=== PATIENT | female | born 1935 | race Caucasian/White ===

== ENCOUNTER → 2016-04-04 07:59 | Outpatient (CLI) | payer MEDICARE, OTHER ==
[2014-08-11 06:26] VITALS: BMI 27.5
[~2016-04-04 07:59] MED LIST: HYDROCODONE-APA1 TAB PO; NORVASC5 MG PO; PLAVIX75 MG PO; POTASSIUM99 M1 PO; PRAVACHOL40 MG PO; PRILOSEC20 MG PO; XANAX0.25 MG PO
== END | disposition home or self-care (01) ==
LOC: D.CT 07:59
DX: K44.9 Diaphragmatic hernia without obstruction or gangrene (principal)

== ENCOUNTER → 2016-09-14 14:30 | Outpatient (CLI) | payer MEDICARE, OTHER ==
[2014-08-11 06:26] VITALS: BMI 27.5
== END | disposition home or self-care (01) ==
LOC: D.CT 14:30
DX: R10.12 Left upper quadrant pain (principal); R10.32 Left lower quadrant pain

== ENCOUNTER 2016-09-19 05:30 | Inpatient (IN) | payer MEDICARE, OTHER ==
[2016-09-18 11:14] LABS: HEMATOCRIT 34.9 % (36.0-48.0); HEMOGLOBIN 11.4 g/dL (12-16); MCH 31.3 pg (26.0-34.0); MCHC 32.7 g/dL (31.0-37.0); MCV 95.9 fL (80.0-100.0); MEAN PLATELET VOLUME 10.9 fL (7.4-10.4); RBC 3.64 10x6/uL (4.00-5.40)
[2016-09-18 11:23] LABS: CALC OSMOLALITY 272 mosm/kg (275-300); CALCIUM 8.7 mg/dL (8.5-10.1); CARBON DIOXIDE 22.1 mmol/L (21.0-32.0); CHLORIDE - SERUM 101 mmol/L (98-107); CREATININE - SERUM 0.5 mg/dL (0.6-1.3); GLUCOSE 89 mg/dL (74-106); POTASSIUM - SERUM 4.2 mmol/L (3.5-5.1); SODIUM 136 mmol/L (136-145); UREA NITROGEN 17 mg/dL (7-18); eGFR NON AFRICAN AMERICAN > 90 mL/min (90-120)
[2016-09-19] VITALS (10 sets, daily range): BP systolic 114–154; BP diastolic 64–84; BMI 26.6
[~2016-09-19] VITALS: Ht 165.1 cm; Wt 72.6 kg
--- NOTE | ~2016-09-19 | CN ---
PATIENT NAME:ELVIA ALONSO MEDICAL RECORD: [id number] : 34 LOCATION:[facility] ADMIT DATE: ACCOUNT: [id number] CONSULTING PHYSICIAN: DANILO JOSUE MD REFERRING PHYSICIAN: LADY HILL MD DATE OF CONSULTATION: 09/19/2016 CONSULT REQUESTING PHYSICIAN: Dr. Hill. REASON FOR CONSULTATION: Acute hypoxic hypercapnic respiratory failure. HISTORY OF PRESENT ILLNESS: Ms. Alonso is an 81-year-old female who underwent paraesophageal hernia repair. During her perioperative period, the patient was given some IV fluid and now the patient became in severe respiratory distress. She was put on BiPAP and 100% oxygen. The patient denies any fever and chills, no night sweats. She is very sleepy and lethargic. The patient denies any history of pulmonary disease. REVIEW OF SYSTEMS: Mainly in the history of present illness. PAST MEDICAL HISTORY: 1. Rheumatoid arthritis. 2. Mild pulmonary hypertension with a PA pressure of 42. 3. Chronic diastolic congestive heart failure with EF of 50%. 4. Hyperlipidemia. 5. Hypertension. 6. History of aortic stenosis. 7. Gastroesophageal reflux disease with a huge hiatal hernia and a history of transient ischemic attack. 8. History of iron deficiency anemia. PAST SURGICAL HISTORY: Now, she is status post paraesophageal hernia repair. PERSONAL AND SOCIAL HISTORY: The patient never smoked. She is a nondrinker. FAMILY HISTORY: Noncontributory. PHYSICAL EXAMINATION: GENERAL: Now, the patient is now lying comfortably in bed. She is in mild respiratory distress. VITAL SIGNS: The blood pressure is 142/84, pulse is 79, respirations 20 and the SpO2 is 99% on the BiPAP. HEENT: Conjunctivae are pink. Sclerae nonicteric. NECK: Supple. There is elevated JVD. CHEST: There are bilateral crackles. No wheezing. HEART: Rhythm regular, normal sound, no murmur. ABDOMEN: Soft. Bowel sounds present. No hepatosplenomegaly. RECTAL: Deferred. EXTREMITIES: No cyanosis, no clubbing, no pedal edema. SKIN: Warm, normal turgor. CENTRAL NERVOUS SYSTEM: The patient is awake, but she is sleepy and lethargic. LABORATORY DATA: ABG: The pH is 7.27, pCO2 is 50.8, pO2 is 69, bicarbonate is 23.6. This was done on 4 liters nasal cannula. CBC: The WBC is 3, hemoglobin is 11.4, hematocrit 34.9 and the platelet count is 236. Chemistry: Sodium 136, CONSULT REPORT [id number] ELVIA ALONSO potassium 4.2, BUN is 17, creatinine 0.5. IMPRESSION: 1. Acute hypoxic hypercapnic respiratory failure. 2. Respiratory acidosis secondary to acute hypoxic hypercapnic respiratory failure. 3. Pulmonary edema secondary to fluid overload and chronic diastolic dysfunction. 4. Mild pulmonary hypertension, PA pressure of 42. 5. Status post huge paraesophageal hernia repair. 6. History of rheumatoid arthritis. RECOMMENDATION: 1. Lasix 40 mg b.i.d. 2. Albuterol/ipratropium nebulizer. 3. DVT prophylaxis. 4. We will be careful with the narcotic medication. 5. I will check the proBNP, will check ammonia level, follow up labs and chest radiograph. Dr. Hill, thank you for involving me in the care of Mr. Alonso. The critical care time was 45 minutes. TRANSINT:[id number] Voice Confirmation ID: [id number] DOCUMENT ID: [id number] DANILO JOSUE MD CC: LADY HILL MD [id number] DICTATION DATE: 09/19/16 1459 MANUAL LATHE MACHINIST: 09/20/16 0100 [facility] [address] [place] [address]
[~2016-09-19 05:30] MED LIST changes: +CELEXA40 MG PO; +FOLIC ACID1 MG PO; +FUROSEMIDE40 MG PO; +METHOTREXATE2.5 MG PO; +OMEPRAZOLE20 M1 PO; +TYLENOL PM1 TAB PO; +VITAMIN D31000 UNIT PO
--- NOTE | 2016-09-19 12:19 | NUR ---
DR MONSALVE NOTIFIED ABOUT THE PATIENTS SEDATION LEVEL AND ORDERED ABG IN RR
--- NOTE | 2016-09-19 12:21 | NUR ---
RESPIRATORY HERE DOING ABG
--- NOTE | 2016-09-19 12:33 | NUR ---
RESPIRATORY HAVING DIFFICULTY GETTING ABG
--- NOTE | 2016-09-19 12:46 | NUR ---
ABG RESULTS TO DR MONSALVE. DR MONSALVE ORDERED SODIUM BICARB AND BIPAP FOR RESIRATORY TO [facility] ON THE FLOOR.
--- NOTE | 2016-09-19 13:25 | NUR ---
PATIENT RECEIVED TO FLOOR FROM PACU VIA BED. BIPAP IN PLACE. VITAL SIGNS STABLE. PATIENT RESTING WITH EYES CLOSED. RESPIRATIONS EVEN AND UNLABORED. WAKES EASY. 7 LAP SITES NOTED TO ABD. SCD ON BILATERALLY. FAMILY AT BEDSIDE. SIDE RAILS UP X3. BED IN LOW POSITION. CALL LIGHT IN REACH.
--- NOTE | 2016-09-19 15:20 | NUR ---
PATIENT ALERT IN BED VISITING WITH FAMILY. VITAL SIGNS REMAIN STABLE. NASAL CANNULA IN PLACE. INCENTIVE SPIROMETER AND TEACHING ON USE PROVIDED. STATES UNDERSTANDING. DENIES NEEDS. CALL LIGHT AND ENTERPRISE APPLICATION DEVELOPER BUTTON IN REACH. SIDE RAILS UP X3. BED IN LOW POSITION.
--- NOTE | 2016-09-19 17:00 | NUR ---
PATIENT ASSISTED UP TO RESTROOM THEN BACK TO BED. POSITIONED SELF FOR COMFORT. SCDS ON BILATERALLY. SIDE RAILS UP X3. BED IN LOW POSITION. CALL LIGHT IN REACH. BED ALARM ON.
--- NOTE | 2016-09-19 19:20 | NUR ---
PATIENT RESTING IN BED WITH GUESTS AT BEDSIDE AND DENIES NEEDS AT THIS TIME. BED IN LOWEST POSITION AND CALL LIGHT WITHIN REACH. ENCOUARGED THE PATIENT TO CALL IF SHE HAS NEEDS.
[2016-09-20] VITALS: BP 123/76
[2016-09-20 04:00] VITALS: BP 109/44
[2016-09-20 05:58] LABS: BASOPHILS 0 % (0-2); EOSINOPHILS 0 % (0-7); HEMATOCRIT 30.8 % (36.0-48.0); IMMATURE GRANULOCYTES 0.1 % (0-5); LYMPHOCYTES 4.6 % (15-50); MCH 31.1 pg (26.0-34.0); MCHC 32.5 g/dL (31.0-37.0); MCV 95.7 fL (80.0-100.0); MEAN PLATELET VOLUME 11.3 fL (7.4-10.4); NEUTROPHILS 84.3 % (40-80); PLATELET COUNT 248 10x3/uL (130-400); RBC 3.22 10x6/uL (4.00-5.40)
[2016-09-20 06:21] LABS: WBC 8.1 10x3/uL (4.8-10.8)
[2016-09-20 06:28] LABS: CALC OSMOLALITY 276 mosm/kg (275-300); CARBON DIOXIDE 25.6 mmol/L (21.0-32.0); CHLORIDE - SERUM 100 mmol/L (98-107); GLUCOSE 128 mg/dL (74-106); POTASSIUM - SERUM 3.8 mmol/L (3.5-5.1); SODIUM 137 mmol/L (136-145); UREA NITROGEN 15 mg/dL (7-18); eGFR NON AFRICAN AMERICAN 85 mL/min (90-120)
[2016-09-20 06:30] LABS: CREATININE - SERUM 0.7 mg/dL (0.6-1.3)
--- NOTE | 2016-09-20 07:37 | OP ---
PATIENT NAME: ELVIA ALONSO MEDICAL RECORD: [id number] :34 LOCATION:[facility] ADMISSION DATE: SURGEON: LADY HILL MD OPERATION DATE: 09/19/16 DATE OF OPERATION: 09/19/2016 DATE OF PROCEDURE: 09/19/2016. PREOPERATIVE DIAGNOSIS: Grade IV paraesophageal hernia. POSTOPERATIVE DIAGNOSIS: Grade IV paraesophageal hernia. PROCEDURE PERFORMED: Laparoscopic paraesophageal hernia repair with Talat fundoplication. SURGEON: Lady Hill M.D. HEAD OF ACADEMIC TECHNOLOGY: Floyd Munoz M.D. OPERATIVE COURSE: For full details of the operative note please see Dr. Hill's operative note. I was asked to assist Dr. Hill due to the complexity of the operation. This is an elderly female who had a large grade IV paraesophageal hernia. Her entire stomach was herniated into the mediastinum as well as the splenic vessels. I assisted Dr. Hill in the reduction of the hernia, the laparoscopic excision of the hernia sac, the laparoscopic dissection of the mediastinum, the hiatal hernia repair, and Talat fundoplication. TRANSINT:[id number] Voice Confirmation ID: [id number] DOCUMENT ID: [id number] LADY HILL MD at 1546 at 0737 CC: [id number] DICTATION DATE: 09/19/16 1253 POLL CLERK: 09/19/16 2212 [facility] [address] [place] [address]
--- NOTE | 2016-09-20 07:40 | NUR ---
PATIENT RECEIVED ALERT IN BED. NO SIGNS OF DISTRESS NOTED. FAMILY PRESENT. DENIES NEEDS. SIDE RAILS UP X3. BED IN LOW POSITION. CALL LIGHT AND FOREIGN CLERK BUTTON IN REACH.
--- NOTE | 2016-09-20 08:12 | NUR ---
PATIENT ALERT IN HIGH CHI POSITION. NO SIGNS OF DISTRESS NOTED. FAMILY AT BEDSIDE. SCHEDULED MEDICATION ADMINISTERED. DENIES NEEDS. BED ALARM ON. SIDE RAILS UP X3. BED IN LOW POSITION. CALL LIGHT IN REACH.
[2016-09-20 09:15] VITALS: BP 128/65
--- NOTE | 2016-09-20 12:00 | NUR ---
PATIENT ALERT IN BED WATCHING TV. NO SIGNS OF DISTRESS NOTED. FAMILY AT BEDSIDE. SIDE RAILS UP X2. BED IN LOW POSITION. CALL LIGHT IN REACH. DENIES NEEDS.
[2016-09-20 12:57] VITALS: BP 143/65
[2016-09-20 13:25] VITALS: Ht 165.1 cm; Wt 72.6 kg
[2016-09-20 15:45] VITALS: BP 148/68
--- NOTE | 2016-09-20 17:00 | NUR ---
SITTING UP IN CHAIR ALERT. NO SIGNS OF DISTRESS NOTED. CALL LIGHT IN REACH. FAMILY PRESENT.
--- NOTE | 2016-09-20 19:45 | NUR ---
PATIENT RESTING IN BED WITH GUEST AT BEDSIDE. PATIENT REQUESTED THAT I CALL THE DOCTOR FOR SOMETHING TO HELP HER SLEEP. PATIENT DENIES OTHER NEEDS AT THIS TIME. BED IN LOWEST POSITION, CALL LIGHT WITHIN REACH, AND BED ALARM ON. ENCOURAGED THE PATIENT TO CALL IF SHE HAS FURTHER NEEDS.
[2016-09-20 20:00] VITALS: BP 145/63
[2016-09-21] VITALS: BP 120/60
[2016-09-21 04:00] VITALS: BP 141/72
[2016-09-21 04:24] LABS: BASOPHILS 0.1 % (0-2); EOSINOPHILS 0.1 % (0-7); HEMATOCRIT 30.3 % (36.0-48.0); HEMOGLOBIN 9.8 g/dL (12-16); IMMATURE GRANULOCYTES 0.3 % (0-5); MCHC 32.3 g/dL (31.0-37.0); MCV 95.9 fL (80.0-100.0); MEAN PLATELET VOLUME 11.1 fL (7.4-10.4); NEUTROPHILS 85.5 % (40-80); PLATELET COUNT 216 10x3/uL (130-400); RBC 3.16 10x6/uL (4.00-5.40); RDW 16.3 % (11.5-14.5); WBC 6.8 10x3/uL (4.8-10.8)
[2016-09-21 04:47] LABS: CALCIUM 8.4 mg/dL (8.5-10.1); CARBON DIOXIDE 27.6 mmol/L (21.0-32.0); CHLORIDE - SERUM 102 mmol/L (98-107); GLUCOSE 118 mg/dL (74-106); POTASSIUM - SERUM 3.7 mmol/L (3.5-5.1); SODIUM 139 mmol/L (136-145)
[2016-09-21 04:48] LABS: CALC OSMOLALITY 276 mosm/kg (275-300); CREATININE - SERUM 0.4 mg/dL (0.6-1.3); UREA NITROGEN 8 mg/dL (7-18); eGFR NON AFRICAN AMERICAN > 90 mL/min (90-120)
--- NOTE | 2016-09-21 07:15 | NUR ---
REPORT RECIEVED ASSUMED CARE. PATIENT IN CHAIR WITH NO COMPLAINTS IV INTACT. O2 ON. CALL LIGHT WITHIN REACH.
[2016-09-21 08:32] VITALS: BP 179/72
[2016-09-21 12:38] VITALS: BP 177/87
[2016-09-21 16:12] VITALS: BP 153/69
--- NOTE | 2016-09-21 18:55 | NUR ---
PATIENT IN BED WITH NO COMPLAINTS. IV INTACT. BED ALARM ON. CALL LIGHT WITHIN REACH.
[2016-09-21 20:00] VITALS: BP 162/60
[2016-09-22] VITALS: BP 90/54
[2016-09-22 04:00] VITALS: BP 122/79
[2016-09-22 06:43] LABS: BASOPHILS 0.2 % (0-2); EOSINOPHILS 4.2 % (0-7); HEMATOCRIT 30.4 % (36.0-48.0); HEMOGLOBIN 9.9 g/dL (12-16); IMMATURE GRANULOCYTES 0.2 % (0-5); LYMPHOCYTES 10.6 % (15-50); MCH 31.3 pg (26.0-34.0); MCHC 32.6 g/dL (31.0-37.0); MCV 96.2 fL (80.0-100.0); MONOCYTES 13.3 % (2-11); NEUTROPHILS 71.5 % (40-80); PLATELET COUNT 226 10x3/uL (130-400); RBC 3.16 10x6/uL (4.00-5.40); RDW 15.9 % (11.5-14.5); WBC 4.8 10x3/uL (4.8-10.8)
--- NOTE | 2016-09-22 07:00 | NUR ---
REPORT RECIEVED ASSUMED CARE. PATIENT IN BED WITH IV INTACT. NO COMLAINTS, CALL LIGHT WITHIN REACH.
[2016-09-22 07:06] LABS: CALC OSMOLALITY 275 mosm/kg (275-300); CALCIUM 8.3 mg/dL (8.5-10.1); CARBON DIOXIDE 31.9 mmol/L (21.0-32.0); CHLORIDE - SERUM 103 mmol/L (98-107); CREATININE - SERUM 0.4 mg/dL (0.6-1.3); GLUCOSE 97 mg/dL (74-106); SODIUM 139 mmol/L (136-145); UREA NITROGEN 7 mg/dL (7-18); eGFR NON AFRICAN AMERICAN > 90 mL/min (90-120)
[2016-09-22 07:08] LABS: POTASSIUM - SERUM 2.9 mmol/L (3.5-5.1)
[2016-09-22 07:48] VITALS: BP 163/74
[2016-09-22 11:47] VITALS: BP 162/86
[2016-09-22 16:22] VITALS: BP 157/77
--- NOTE | 2016-09-22 18:55 | NUR ---
PATIENT UP TO BR. IV OUT. CATH TIP INTACT. NOTIFIED MARCELO NORTON TUFTER OPERATOR NURSE. STATED SHE WOULD RESTART FOR PATIENT. PATIENT ASSISTED BACK TO BED BY STANLEY NORTON. NO COMPLAINTS OR PROBLEMS. CALL LIGHT WITHIN REACH.
[2016-09-22 19:00] VITALS: BP 177/87
[2016-09-23 04:00] VITALS: BP 163/75
[2016-09-23 06:04] LABS: BASOPHILS 0.5 % (0-2); EOSINOPHILS 5.1 % (0-7); HEMATOCRIT 30.3 % (36.0-48.0); HEMOGLOBIN 9.9 g/dL (12-16); IMMATURE GRANULOCYTES 0.5 % (0-5); LYMPHOCYTES 12.7 % (15-50); MCHC 32.7 g/dL (31.0-37.0); MEAN PLATELET VOLUME 10.7 fL (7.4-10.4); MONOCYTES 12.2 % (2-11); PLATELET COUNT 233 10x3/uL (130-400); RBC 3.19 10x6/uL (4.00-5.40); RDW 15.7 % (11.5-14.5); WBC 3.9 10x3/uL (4.8-10.8)
[2016-09-23 06:54] LABS: CALC OSMOLALITY 275 mosm/kg (275-300); CALCIUM 8.1 mg/dL (8.5-10.1); CARBON DIOXIDE 30.7 mmol/L (21.0-32.0); CHLORIDE - SERUM 103 mmol/L (98-107); CREATININE - SERUM 0.5 mg/dL (0.6-1.3); GLUCOSE 100 mg/dL (74-106); POTASSIUM - SERUM 3.3 mmol/L (3.5-5.1); SODIUM 139 mmol/L (136-145); UREA NITROGEN 8 mg/dL (7-18); eGFR NON AFRICAN AMERICAN > 90 mL/min (90-120)
--- NOTE | 2016-09-23 08:00 | NUR ---
PATIENT SITTING UP IN BED WITH NO COMPLAINTS AT THIS TIME. IV INTACT. INCISIONS X 7 WITH BANDAIDS INTACT. NO PROBLEMS AT THIS TIME. O2 ON AT 3 LNC. BED ALARM ON. CALL LIGHT WITHIN REACH.
--- NOTE | 2016-09-23 18:45 | NUR ---
PATIENT SITTING UP IN CHAIR WITH FAMILY AT BEDSIDE. IV INTACT. WRAPPED WITH ALLY WRAP AT THIS TIME. NO COMPLAINTS OR SIGNS OF DISTRESS. CALL LIGHT WITHIN REACH. CHAIR ALARM ON.
[2016-09-23 19:00] VITALS: BP 145/91
--- NOTE | 2016-09-23 22:40 | NUR ---
REC'D SITTING IN CHAIR. ALERT AND ORIENTED X4. DENIED PAIN AT THIS TIME. WANTING TO GO TO THE RESTROOM, TOOK HER. HELPED HER INTO BED. DENIED FURTHER NEEDS AT THIS TIME. INSTRUCTED TO CALL IF NEEDED ANYTHING/ VERBLAIZED UNDERSTANING. WILL CONT TO MONITOR. BED LOW, LOCKED, CALL LIGHT IN REACH, ALARM ON.
[2016-09-24] VITALS: BP 130/61
--- NOTE | 2016-09-24 01:24 | NUR ---
PT RESTING WITH EYES CLOSED. RESP EVEN AND REGULAR. SR UP X2,CALL LIGHT WITHIN TRISH.
[2016-09-24 04:00] VITALS: BP 154/66
--- NOTE | 2016-09-24 05:08 | NUR ---
RESTING WELL, NO DISTRESS NOTED, WILL CONT TO MONITOR. BED LOW, LOCKED, CALL LIGHT IN REACH, ALARM ON.
[2016-09-24 07:31] LABS: BASOPHILS 0.5 % (0-2); EOSINOPHILS 5.2 % (0-7); HEMATOCRIT 34.3 % (36.0-48.0); HEMOGLOBIN 11.2 g/dL (12-16); IMMATURE GRANULOCYTES 1.5 % (0-5); LYMPHOCYTES 9.2 % (15-50); MCH 30.5 pg (26.0-34.0); MCHC 32.7 g/dL (31.0-37.0); MCV 93.5 fL (80.0-100.0); MEAN PLATELET VOLUME 11.6 fL (7.4-10.4); MONOCYTES 12.4 % (2-11); NEUTROPHILS 71.2 % (40-80); PLATELET COUNT 251 10x3/uL (130-400); RBC 3.67 10x6/uL (4.00-5.40); RDW 15.6 % (11.5-14.5)
[2016-09-24 07:35] LABS: CALC OSMOLALITY 277 mosm/kg (275-300); CALCIUM 8.6 mg/dL (8.5-10.1); CARBON DIOXIDE 29.6 mmol/L (21.0-32.0); CHLORIDE - SERUM 100 mmol/L (98-107); CREATININE - SERUM 0.5 mg/dL (0.6-1.3); GLUCOSE 116 mg/dL (74-106); POTASSIUM - SERUM 3.7 mmol/L (3.5-5.1); SODIUM 140 mmol/L (136-145); UREA NITROGEN 7 mg/dL (7-18); eGFR NON AFRICAN AMERICAN > 90 mL/min (90-120)
--- NOTE | 2016-09-24 10:34 | NUR ---
Patient Name: ELVIA ALONSO Admission Status: Elective Accout number: [id number] Admission Date: 09-20-2016 : 1935 Admission Diagnosis:ACUTE RESPIRATORY FAILURE WITH HYPERCAPNIA Attending: GLADYS Current LOS: 4 Anticipated DC Date: 09-24-2016 Planned Disposition: Inpatient Rehab Primary Insurance: MEDICARE A & B Discharge Planning Comments: CM MET WITH PATIENT REGARDING D/C NEEDS AND PLANS. PATIENT STATED SHE LIVES WITH HER SPOUSE (ANGEL) AND SON. PATIENT STATED THEY COULD DRIVE HER HOME AT DISCHARGE. PATIENT STATED SHE HAS ONE STEP TO ENTER HOME AND NO STAIRS INSIDE. PATIENT STATED SHE IS PRETTY INDEPENDENT AT HOME AND HAS A CANE. PATIENT STATED HER SON AND SPOUSE HELP HER IF NEEDED. PATIENTS PCP IS DR. BLANDON AND PHARMACY IS [facility]. PATIENT HAS CONSULT TO IP REHAB AND SHOULD D/C THERE TODAY. CM WILL CONTINUE TO FOLLOW PATIENT WITH D/C NEEDS AND PLANS. PCP DR. BARBER BALDWIN [facility] [phone] ANGEL (SPOUSE) [phone] Powerbuilder: Huong Shah Is the patient Alert and Oriented? Yes 0 * How many steps to enter\exit or inside your home? 1 0 * PCP DR. BLANDON 0 * Pharmacy [facility] 0 * Preadmission Environment Home with Family 0 * ADLs Independent 0 * Equipment None 0 * List name and contact numbers for known caregivers / representatives who currently or will assist patient after discharge: ANGEL (SPOUSE) [phone] * Community resources currently utilized None 0 * Additional services required to return to the preadmission environment? Yes 0 * Can the patient safely return to the preadmission environment? Yes 0 * Has this patient been hospitalized within the prior 30 days at any hospital? No 0 Grand Total: 0
[2016-09-24] MEDS ORDERED: LASIX40 MG PO (11:55)
[2016-09-24] MEDS ORDERED: BENADRYL25 MG PO (11:56)
[2016-09-24] MEDS ORDERED: IPRAT-ALBUT 0.5-3 ML UPD (11:57)
[2016-09-24] MEDS ORDERED: LOVENOX30 MG/0.3 SC (11:58)
[2016-09-24] MEDS ORDERED: HYDROCODON-ACE1 EAC7 PO (11:59)
[2016-09-24] MEDS ORDERED: ELECTROLYTE MISC (12:07)
[2016-09-24] MEDS ORDERED: ONDANSETRON4 MG/2 M3 IV (12:07)
[2016-09-24 12:24] VITALS: BP 169/92
--- NOTE | 2016-09-24 15:16 | NUR ---
CM REASSESSMENT NOTE: PATIENT IS DISCHARGING TODAY TO IP REHAB
--- NOTE | 2016-09-24 15:46 | OP ---
PATIENT NAME: ELVIA ALONSO MEDICAL RECORD: [id number] :34 LOCATION:[facility] ADMISSION DATE:09/20/16 SURGEON: LADY HILL MD DATE OF OPERATION: 09/19/2016 PREOPERATIVE DIAGNOSES: 1. Type 4 paraesophageal hernia. 2. Large hiatal hernia. POSTOPERATIVE DIAGNOSES: 1. Type 4 paraesophageal hernia. 2. Large hiatal hernia. PROCEDURES: 1. Laparoscopic incarcerated type 4 paraesophageal hernia repair. 2. Laparoscopic posterior crural repair with Talat fundoplication. SURGEON: Lady Hill MD LOGISTICS PLANNING MANAGER: FLOYD MUNOZ MD COMPLICATIONS: None. BLOOD LOSS: Minimal. OPERATIVE COURSE: The patient was conveyed to the operating room electively on 09/19/2016. General anesthesia was induced by anesthesia staff. The abdomen was sterilely prepped and draped. In left upper quadrant, a small skin mary was accomplished. A Veress needle was inserted through the skin mary into the peritoneal cavity. CO2 insufflation was begun. Once a sufficient pneumoperitoneum had been achieved, a 12-mm trocar was inserted at the umbilicus. A 11-mm trocar was inserted at the umbilicus. A 12-mm trocars were inserted in the right upper quadrant. Two 5-mm trocars were inserted in the left upper quadrant. A Jaret retractor was inserted through an incision in the epigastrium. The Jaret retractor was used to elevate the left lateral segment of the liver. I began my dissection around the greater curve of the stomach. Almost all the stomach was up in the chest and a portion of the spleen as well as the splenic artery. These were delivered down into the abdominal cavity. I continued my dissection. The phrenicoesophageal ligament was taken down. I began my dissection along the lesser curve of the stomach. The mediastinal dissection was performed. We delivered the stomach as well as the spleen and splenic artery into the abdominal cavity. There was about 4 cm of esophagus as well. I cleaned the both crura posteriorly. The crural repair was a posterior repair. It was accomplished with Stratafix 0 Prolene. I then reached and grabbed the fundus of the stomach and brought it around posteriorly. I sutured the stomach to esophagus to stomach with Stratafix suture, which was a PDS. A five throws of the PDS suture were accomplished, 2 as a locking stitch cephalad and then 2 as a locking stitch caudad. The repair was a nice floppy repair. There was a tension-free esophagus with about 4 cm of esophagus down to the abdominal cavity. The Jaret retractor was removed after I examined the abdomen. There is no evidence of any bleeding. The 12-mm trocar and the 11-mm trocar OPERATIVE REPORT [id number] ELVIA ALONSO sites were closed with Bhavik-Milan suture closure device and 0 Vicryl sutures. Skin incisions were closed with interrupted 4-0 Vicryls. Sterile dressings were applied. The patient was then extubated and conveyed to post-anesthesia care unit where she was in stable condition. TRANSINT:[id number] Voice Confirmation ID: [id number] DOCUMENT ID: [id number] LADY HILL MD at 1546 CC: JOSSE BLANDON DO, SATISH TEJADA MD and SANJEEV PETERSEN [id number] DICTATION DATE: 09/19/16 1148 JINRIKSHA DRIVER: 09/19/16 1342 ADM IN [facility] [address] [place] [address]
--- NOTE | 2016-09-24 16:10 | NUR ---
Rehab Prescreening Consult recieved and the patient was visited. She meets criteria and will be accepted today if the physician agrees. The program and criteria was discussed with the patient and her son. Both agree on admission today. Pia Avila RN Clinical Liaison, Rehab
--- NOTE | 2016-09-24 17:58 | NUR ---
DISHCARGE INSTRUCTIONS GIVEN QUESTIONS ANSWERED, IV STAYING IN, DISCHARGED TO REHAB ROOM 1112B IN WC WITH BELONGINGS
[2016-09-24] MEDS ORDERED: AMPICILLIN1.5 G/VIA2 IV (20:23)
== END 2016-09-24 18:36 | DRG 163 ==
LOC: D.MS 05:30 → D.OPS 05:30 → D.PAN 08:00 → D.MS 13:25 → D.OPS 09-20 17:24 → D.MS 09-20 17:24
PROVIDERS: Anesthesiology; Internal Medicine Pulmonary Disease; ADMIT Surgery
PROC: 0BQS4ZZ (ICD-10-PCS; 2016-09-19)
PROC: 0BQR4ZZ (ICD-10-PCS; 2016-09-19)
PROC: 5A09357 Assistance with Respiratory Ventilation, Less than 24 Consecutive Hours, Continuous Positive Airway Pressure (ICD-10-PCS; principal; 2016-09-19 08:00)
PROC: 0DV44ZZ Restriction of Esophagogastric Junction, Percutaneous Endoscopic Approach (ICD-10-PCS; principal; 2016-09-19 08:00)
DX: J96.01 Acute respiratory failure with hypoxia (principal); J69.0 Pneumonitis due to inhalation of food and vomit; I50.33 Acute on chronic diastolic (congestive) heart failure; E87.2 Acidosis; I11.0 Hypertensive heart disease with heart failure; K21.9 Gastro-esophageal reflux disease without esophagitis; I27.2 Other secondary pulmonary hypertension; M06.9 Rheumatoid arthritis, unspecified; K44.9 Diaphragmatic hernia without obstruction or gangrene

== ENCOUNTER 2016-09-24 17:45 | Inpatient (IN) | payer MEDICARE, OTHER ==
[~2016-09-24] VITALS: Ht 165.1 cm; Wt 72.6 kg
[~2016-09-24 17:45] MED LIST changes: +BENADRYL25 MG PO; +ELECTROLYTE MISC; +HYDROCODON-ACE1 EAC7 PO; +IPRAT-ALBUT 0.5-3 ML UPD; +LASIX40 MG PO; +LOVENOX30 MG/0.3 SC; +ONDANSETRON4 MG/2 M3 IV
--- NOTE | 2016-09-24 19:40 | NUR ---
REVIEWED ADMISSION DOCUMENTS WITH PATIENT, PT SIGNED. PT STATES SHE IS READY TO GO HOME AND ONLY WANTS TO BE HERE FOR A COUPLE OF DAYS.
[2016-09-24] MEDS ORDERED: AMPICILLIN1.5 G/VIA2 IV (20:23)
--- NOTE | 2016-09-24 22:00 | NUR ---
INITIATED ADMISSION ASSESSMENT AND HISTORY. PT AWAKE ALERT APPEARS TO BE ALERT AND ORIENTED X 4, AND AWARE OF HER SURROUNDINGS.
[2016-09-24 22:40] VITALS: BP 145/73; BMI 26.6
--- NOTE | 2016-09-25 01:00 | NUR ---
PT RESTING WITH EYES CLOSED, RESPIRATIONS REGULAR AND UNLABORED. NO S/S OF ACUTE DISTRESS.
--- NOTE | 2016-09-25 04:41 | NUR ---
PT RESTING QUIETLY, RESPIRATIONS REGULAR AND UNLABORED.
[2016-09-25 05:36] LABS: BASOPHILS 0.6 % (0-2); EOSINOPHILS 5.2 % (0-7); HEMATOCRIT 31.4 % (36.0-48.0); HEMOGLOBIN 10.1 g/dL (12-16); IMMATURE GRANULOCYTES 0.3 % (0-5); LYMPHOCYTES 12.3 % (15-50); MCH 30.3 pg (26.0-34.0); MCHC 32.2 g/dL (31.0-37.0); MCV 94.3 fL (80.0-100.0); MEAN PLATELET VOLUME 10.9 fL (7.4-10.4); MONOCYTES 18.4 % (2-11); NEUTROPHILS 63.2 % (40-80); PLATELET COUNT 280 10x3/uL (130-400); RBC 3.33 10x6/uL (4.00-5.40); RDW 15.5 % (11.5-14.5); WBC 3.3 10x3/uL (4.8-10.8)
[2016-09-25 06:07] LABS: CALC OSMOLALITY 281 mosm/kg (275-300); CALCIUM 8.5 mg/dL (8.5-10.1); CARBON DIOXIDE 31.3 mmol/L (21.0-32.0); CHLORIDE - SERUM 103 mmol/L (98-107); CREATININE - SERUM 0.6 mg/dL (0.6-1.3); GLUCOSE 102 mg/dL (74-106); POTASSIUM - SERUM 3.2 mmol/L (3.5-5.1); SODIUM 142 mmol/L (136-145); eGFR NON AFRICAN AMERICAN > 90 mL/min (90-120)
[2016-09-25 06:08] LABS: UREA NITROGEN 11 mg/dL (7-18)
[2016-09-25 14:26] VITALS: Ht 165.1 cm; Wt 72.6 kg
[2016-09-25 15:34] VITALS: BP 135/64
--- NOTE | 2016-09-25 16:09 | NUR ---
RESTING IN BED. HAS TWO VISITORS SITTING AND TALKING WITH HER. SHE DENIES NEEDS OR PAIN. ABD INCISIONS X5 ARE SMALL AND COVERED WITH STERI STRIPS. SHE DENIES NEW OR WORSE PAIN. DOES STATES SOME OCCAS. DISCOMFORT TO LEFT SIDE THAT SHE HAS HAD FOR A "LONG TIME".
--- NOTE | 2016-09-25 18:47 | NUR ---
RESTING QUIETLY IN BED. DENIES NEEDS OR C/O. CALL LIGHT IN REACH
--- NOTE | 2016-09-25 19:06 | RHP ---
PATIENT: ELVIA ALONSO MEDICAL RECORD: [id number] ACCOUNT: [id number] LOCATION:[facility]1112 : 34 ADMISSION DATE: 09/24/16 REHABILITATION HISTORY AND PHYSICAL EXAMINATION POST ADMISSION PHYSICIAN EXAMINATION DATE OF ADMISSION: 09/24/2016. ADMITTING DIAGNOSES: 1. Respiratory disorder, non-ventilator dependent. 2. Shortness of breath. HISTORY OF PRESENT ILLNESS: An 81-year-old white female patient of Dr. Swan admitted to [facility] about a week ago for laparoscopic incarcerated type 4 paraesophageal hernia repair with a laparoscopic posterior crural repair with Talat fundoplication. The surgery was performed by Dr. Montes and Dr. Shell. During the perioperative period, she had been given IV fluids and developed some respiratory distress. She was put on BiPAP on 100% oxygen. She has been titrated down to 3-4 liters of O2, but desats to the 80s on room air. Most recent chest x-ray showed persistent bilateral lower lobe airspace disease with bilateral pleural effusions. Dr. Aguiar and Dr. Garcia, pulmonologists have been consulted. Her findings suggest pneumonia and/or congestive heart failure. She remained on O2 at 4 liters with IV antibiotics and IV Lasix. She previously lived with her spouse and was independent with ADLs and mobility. Currently, she has moderate to max assist for ADLs and mobility. She becomes dyspneic and tires easily with minimal exertion. She plans to get stronger and return back home with her and her son at prior level of functioning. Comorbidities include frequent falls, arrhythmias, loss of appetite, change in cognition, hypertension, acid reflux, peptic ulcer disease, constipation, depression, and anxiety. PAST MEDICAL HISTORY: Rheumatoid arthritis, pulmonary hypertension, congestive heart failure, hyperlipidemia, hypertension, aortic stenosis, GERD and iron deficiency anemia. PAST SURGICAL HISTORY: Paraesophageal hernia repair, cataracts, hysterectomy and bilateral carpal tunnel. ALLERGIES: No coded allergies. MEDICATIONS: Methotrexate 50 mg a week, potassium 595 mg a day, omeprazole 20 mg twice a day, pravastatin 40 mg a day, amlodipine 5 mg a day, Lasix 40 mg a day, Tylenol PM p.r.n., Celexa 40 mg a day, folic acid 1 mg a day, vitamin D3 1000 units daily. FAMILY HISTORY: Parents with cardiovascular disease and sibling with cancer, and child with cardiovascular disease. SOCIAL HISTORY: Nonsmoker, nondrinker. REVIEW OF SYSTEMS: GENERAL: Positive for fatigue, positive for weakness. PHOTOGRAPHIC RESTORER: Denies headache or dizziness. CARDIOVASCULAR: No chest pain. CONSTITUTIONAL: No fever or chills. HISTORY AND PHYSICAL [id number] ELVIA ALONSO GASTROINTESTINAL: No nausea, vomiting, diarrhea. Does complain of constipation. GENITOURINARY: No dysuria. HEME: Easy bruising. SKIN: Again, easy bruising. RESPIRATORY: Positive for shortness of breath. Positive for cough. MUSCULOSKELETAL: Positive for stiffness and arthritis. PHYSICAL EXAMINATION: GENERAL: No acute distress. HEENT: Normocephalic, atraumatic. NECK: Supple. LUNGS: Decreased breath sounds bilaterally with crackles heard in the bases. CARDIOVASCULAR: Regular rate and rhythm. III/ systolic ejection murmur. Trace pedal edema. ABDOMEN: Soft, nontender to palpation. Bowel sounds are present. EXTREMITIES: Trace edema. No clubbing or cyanosis. MUSCULOSKELETAL: Full range of motion in all extremities. NEUROLOGIC: Awake, alert, oriented times 3. LABORATORY DATA: See chart. ASSESSMENT: 1. An 81-year-old female patient admitted to rehab with a working diagnosis of respiratory distress. The patient has potential to make improvement. We instituted the following multidisciplinary therapies including, but not limited to physical, occupational, respiratory, speech, nutritional services, prosthetics and orthotics. Given her complex condition and risk for more complications, rehabilitation services cannot be provided at a lower level of care such as a intermediate facility. PLAN: 1. Admit to [facility] rehab for intensive inpatient therapy to include the following disciplines: A. Physical therapy to improve gait, all transfer skills and bed mobility to a modified independent level. B. Occupational therapy to improve activities of daily living to a modified independent level. C. Case management to assist with discharge planning and placement options. D. Nutrition to assist with nutritional needs. E. Rehabilitation nursing to assist with monitoring of the patient's underlying medical conditions and to assist with any type of bowel or bladder management. 2. The patient's current medications and medical care will be continued. 3. The patient's FIM scores are better as reported. 4. We will discuss this patient during the care team staff meeting. TRA notes whether there has been none or any medical functional changes since admission, no change since prescreen. TRA test, the patient continues to be appropriate for IRF, continues to be appropriate. TRANSINT:[id number] Voice Confirmation ID: [id number] DOCUMENT ID: [id number] HISTORY AND PHYSICAL [id number] ELVIA ALONSO notes whether there has been none or any medical/functional change since admission: - TRA attests patient continues to be appropriate for IRF: - DEREK TINEO MD at 1906 CC: [id number] DICTATION DATE: 09/24/161940 REQUIREMENTS MANAGER: 09/24/16 5687 ADM IN [facility] [address] [place] [id number]
--- NOTE | 2016-09-25 19:30 | NUR ---
PT RESTING IN BED, PT STATES SHE FEELS A LITTLE RESTLESS AND HOPES TO BE ABLE TO GET A GOOD NIGHT SLEEP TONIGHT.
[2016-09-25 20:14] VITALS: BP 126/77
--- NOTE | 2016-09-25 22:30 | NUR ---
SALINE LOCK DCD, CANULA INTACT, SALINE RESTARTED X1 22G IN RIGHT HAND. PT TOLERATED WELL.
--- NOTE | 2016-09-26 04:46 | NUR ---
PT RESTING QUIETLY, IV INFUSED. NO S/S OF ACUTE DISTRESS.
[2016-09-26 08:24] VITALS: BP 128/79
--- NOTE | 2016-09-26 08:35 | NUR ---
PT AM MEDS ADMINISTERED. PT DENEIS NEEDS AT THIS TIME. BED LOW. CLIN REACH.
--- NOTE | 2016-09-26 11:13 | NUR ---
PT IN THERAPY, TOLERATING WELL. PT DENIES NEEDS. WCTM.
--- NOTE | 2016-09-26 16:17 | NUR ---
PATIENT ADMITTED TO REHAB FROM ACUTE FLOOR. SHE HAS A CANE AT HOME AND LIVES WITH HER SPOUSE AND SON. DR. BLANDON IS HER PCP AND SHE USES [facility] FOR HER MEDCIATIONS.WILL CONTINUE TO FOLLOW WITH PATIENT
--- NOTE | 2016-09-26 16:19 | NUR ---
CARE TEAM MEETING: PATIENT PROGRESSING VERY WELL IN THERAPY. TENATIVE DISCHARGE DATE IS 09/28/16 HOME WITH HER SPOUSE. WILL CONTINUE TO FOLLOW WITH PATIENT. DME AT HOME IS A CANE.
--- NOTE | 2016-09-26 17:20 | NUR ---
PT REQ AND REC'D PRN PAIN MEDICATION AT THIS TIME PER ORDERS. WCTM.
--- NOTE | 2016-09-26 19:15 | NUR ---
SITTING UP IN GIA AT BEDSIDE. DENIES NEEDS.
--- NOTE | 2016-09-26 20:20 | NUR ---
REMAINS SEATED AT BEDSIDE. DENIES NEEDS.
[2016-09-26 22:20] VITALS: BP 163/69
--- NOTE | 2016-09-26 22:20 | NUR ---
ASSESSMENT AND HS MEDS COMPLETE. REQUESTED AND WAS GIVEN TEMAZEPAM 15MG PO FOR SLEEP. STARTED IV UNASYN 1.5GM IN 10ML OR RUN PER PUMP VIA RIGHT HAND S/L OVER 30 MINUTES.
--- NOTE | 2016-09-27 00:20 | NUR ---
RESTING QUIETLY ON LEFT SIDE. NO DISTRESS EVIDENT.
--- NOTE | 2016-09-27 02:29 | NUR ---
RESTING IN BED ON RIGHT SIDE. APPEARS COMFORTABLE.
--- NOTE | 2016-09-27 03:50 | NUR ---
STARTED UNASYN 1.5GM IN 100ML TO RUN PER PUMP VIA RIGHT HAND S/L OVER 30 MINUTES. PATIENT VERY DROWSY.
--- NOTE | 2016-09-27 06:00 | NUR ---
RESTING IN BED, EYES CLOSED.
--- NOTE | 2016-09-27 07:27 | NUR ---
PT SITTING ON THE SIDE OF HER BED EATING BREAKFAST. NO SWALLOWING PROBLEMS NOTED. ALERT AND ORIENTED X 3. DENIES ACUTE PAIN OR DISCOMFORT AT THIS TIME. NO COMPLAINTS VOICED. SR'S ARE UP X 2 IN BED. CALL LIGHT AND BEDSIDE TABLE ARE WITHIN EASY REACH.
--- NOTE | 2016-09-27 07:55 | NUR ---
AWAKE.CL IN REACH.DENIES NEEDS.
[2016-09-27 09:42] VITALS: BP 165/82
--- NOTE | 2016-09-27 10:38 | NUR ---
PT IS PARTICIPATING IN THERAPY AT THIS TIME.
--- NOTE | 2016-09-27 12:30 | NUR ---
PT IS FEEDING SELF LUNCH IN HER ROOM. NO NEEDS VOICED.
--- NOTE | 2016-09-27 14:36 | NUR ---
Nutrition Follow Up: Pt is eating 87% meal avg on a regular soft diet. No BM since admit. Meds noted including Lasix. Labs reviewed. Rec continue current diet. RD following.
--- NOTE | 2016-09-27 17:05 | NUR ---
PT RESTING IN HER ROOM EATING SUPPER. NO NEEDS VOICED.
--- NOTE | 2016-09-27 19:10 | NUR ---
UP IN W/C AT BEDSIDE. DENIES NEEDS.
[2016-09-27 21:00] VITALS: BP 154/67
--- NOTE | 2016-09-27 21:00 | NUR ---
ASSESSMENT COMPLETE. DENIES CURRENT NEEDS.
--- NOTE | 2016-09-27 22:10 | NUR ---
GAVE PATIENT RESTORIL 15MG PO FOR SLEEP. STARTED UNASYN 1.5GM IN 100 ML TO RUN OVER 30 MINUTES VIA RIGHT HAND S/L. PATIENT REFUSED SHOWER TONIGHT WELL IN THE AM. SAYS SHE WILL TAKE ONE AT HOME TOMORROW AFTER DISCHARGE.
--- NOTE | 2016-09-27 23:50 | NUR ---
RESTING QUIETLY IN BED, EYES CLOSED.
--- NOTE | 2016-09-28 01:50 | NUR ---
RESTING IN BED, ON LEFT SIDE, EYES CLOSED.
--- NOTE | 2016-09-28 04:30 | NUR ---
AWOKE PATIENT. FLUSHED HER RIGHT HAND S/L. STARTED UNASYN 1.5GM IN 100ML TO RUN OVER 30 MINUTES PER PUMP VIA AFOREMENTIONED S/L.
[2016-09-28] MEDS ORDERED: ELIQUIS2.5 MG PO (07:39)
--- NOTE | 2016-09-28 08:05 | NUR ---
PT AM MEDS ADMINISTERED. PT DENIES NEEDS AT THIS TIME.
[2016-09-28 08:30] VITALS: BP 139/89
--- NOTE | 2016-09-28 10:33 | NUR ---
PATIENT DISCHARGING HOME WITH FAMILY. PATIENT HAS DECLINED HOME HEALTH AND DENIES ANY NEW DME AT THIS TIME. SHE HAS A WALKER AND CANE AT HOME. DR. BLANDON 10/03/16 @ 2:15, DR. HILL 10/18/16 @ 10:20. [facility] FORM SIGNED, EXPLAINED AND FILED IN CHART. NURSE TO REVIEW DISCHARGE MEDICATION WITH PATIENT AND FAMILY.
--- NOTE | 2016-09-28 12:45 | NUR ---
PT IV TO RT WRIST DC'D CATHETER INTACT. PT HAD ONE SUTURE TO BELLY BUTTON REMOVED. PT WAS ESCORTED TO SON'S VEHICLE VIA WHEELCHAIR TO GO HOME.
--- NOTE | 2016-09-28 16:44 | NUR ---
[facility] CALLED IN DUE TO AMPILLIN BEING DC'D PER DR LANTIGUA.
== END 2016-09-28 15:04 | disposition home or self-care (01) | DRG 189 ==
LOC: D.REHAB 17:45
PROVIDERS: ADMIT Emergency Medicine
DX: J96.02 Acute respiratory failure with hypercapnia (principal); J18.9 Pneumonia, unspecified organism; I50.32 Chronic diastolic (congestive) heart failure; J96.01 Acute respiratory failure with hypoxia; M06.9 Rheumatoid arthritis, unspecified; I49.9 Cardiac arrhythmia, unspecified; I11.0 Hypertensive heart disease with heart failure; R63.0 Anorexia; K21.9 Gastro-esophageal reflux disease without esophagitis; K27.9 Peptic ulcer, site unspecified, unspecified as acute or chronic, without hemorrhage or perforation; F41.8 Other specified anxiety disorders; K59.00 Constipation, unspecified

== ENCOUNTER → 2016-10-19 08:02 | Outpatient (CLI) | payer MEDICARE, OTHER ==
[2016-09-25 14:26] VITALS: BMI 26.6
[~2016-10-19 08:02] MED LIST changes: +AMPICILLIN1.5 G/VIA2 IV; +ELIQUIS2.5 MG PO
== END | disposition home or self-care (01) ==
LOC: D.CT 08:02
DX: R10.12 Left upper quadrant pain (principal)

== ENCOUNTER → 2017-04-23 12:59 | Outpatient (CLI) | payer MEDICARE, OTHER ==
[2016-09-25 14:26] VITALS: BMI 26.6
== END | disposition home or self-care (01) ==
LOC: D.CT 12:59
DX: R10.12 Left upper quadrant pain (principal)

== ENCOUNTER → 2017-10-25 09:06 | Outpatient (CLI) | payer MEDICARE, OTHER ==
[2016-09-25 14:26] VITALS: BMI 26.6
== END | disposition home or self-care (01) ==
LOC: D.CT 09:06
DX: R10.12 Left upper quadrant pain (principal)

== ENCOUNTER → 2019-04-27 11:45 | Outpatient (CLI) | payer MEDICARE, OTHER ==
[2016-09-25 14:26] VITALS: BMI 26.6
== END | disposition home or self-care (01) ==
LOC: D.CT 11:30
PROVIDERS: ATTEND Family Medicine
DX: R10.13 Epigastric pain (principal)